=== PATIENT | male | born 1970 | race Caucasian/White ===

== ENCOUNTER → 2016-10-28 | Outpatient (CLI) | payer BC ==
[2016-10-28] VITALS (15 sets, daily range): BP systolic 103–144; BP diastolic 66–88; PULSE 61–77
[~2016-10-28] VITALS: Ht 175.3 cm; Wt 79.5 kg
[~2016-10-28] MED LIST: BENTYL 20MG20 MG/TAB PO; LIPITOR20 MG PO; PROTONIX 40MG T40 MG PO; ULTRAM 50MG TAB50 MG PO; ZOFRAN ODT4 MG PO
== END ==
LOC: COL.RAD 13:30
DX: D13.4 Benign neoplasm of liver (principal)
CPT/HCPCS: J2250; J3010; Q9967

== ENCOUNTER → 2016-11-08 | Outpatient (CLI) | payer BC ==
[~2016-11-08] VITALS: Ht 175.3 cm; Wt 78.9 kg
[2016-11-08] VITALS (17 sets, daily range): BP systolic 103–126; BP diastolic 60–86; PULSE 54–74
[2016-11-08 11:38] LABS: INR 1.1 (0.8-3.0); PROTHROMBIN TIME 11.8 SECONDS (9.7-12.8)
== END ==
LOC: COL.RAD 10:53
PROVIDERS: Internal Medicine
DX: D13.4 Benign neoplasm of liver (principal)
CPT/HCPCS: J2250; J3010; Q9967